=== PATIENT | female | born 1970 | race Caucasian/White ===

== ENCOUNTER 2020-07-14 18:27 | Inpatient (IN) | payer BC, MEDICAID, OTHER ==
[~2020-07-14] VITALS: Ht 157.5 cm; Wt 82.0 kg
[~2020-07-14 18:27] MED LIST: ERGO500017 PO; LEVO75TA5 PO; TRAM1TAB56 PO
--- NOTE | 2020-07-14 18:54 | NUR ---
REPORT SUSY TO DONG
[2020-07-14 19:22] LABS: BASOPHILS # (AUTO) 0.09 x10^3/uL (0-0.1); BASOPHILS % (AUTO) 1 % (0-1); EOSINOPHILS # (AUTO) 0.09 x10^3/uL (0-0.4); EOSINOPHILS % (AUTO) 1 % (1-7); LYMPHOCYTES # (AUTO) 2.63 x10^3/uL (1-3.4); LYMPHOCYTES % (AUTO) 31 % (22-44); MD NO; MEAN CORPUSCULAR HEMOGLOBIN 31.3 pg (27.0-34.8); MEAN CORPUSCULAR HGB CONC 33.4 g/dL (32.4-35.8); MEAN CORPUSCULAR VOLUME 93.8 fL (80-100); MEAN PLATELET VOLUME 8.2 fL (7.4-10.4); MONOCYTES # (AUTO) 0.35 x10^3/uL (0.2-0.8); MONOCYTES % (AUTO) 4 % (2-9); NEUTROPHILS # (AUTO) 5.25 x10^3/uL (1.8-6.8); NEUTROPHILS % (AUTO) 63 % (42-75); PLATELET COUNT 208 x10^3/uL (130-400); RED BLOOD COUNT 4.45 x10^6/uL (3.82-5.3); RED CELL DISTRIBUTION WIDTH 13.4 % (9.6-15.2)
[2020-07-14] MEDS ORDERED: SODIUM CHLORIDE FLUSH 10ML SYR IVF ONE (19:30)
[2020-07-14] MEDS ORDERED: SODIUM CHLORIDE 0.9% 1,000ML IVBOLUS ONE (19:30)
[2020-07-14 19:33] LABS: ALANINE AMINOTRANSFERASE 35 U/L (12-78); ALBUMIN 3.6 g/dL (3.4-5.0); ANION GAP 7 mmol/L (5-15); CALCIUM 8.6 mg/dL (8.5-10.1); CHLORIDE 107 mmol/L (98-107); CREATININE 0.72 mg/dL (0.55-1.02)
[2020-07-14 19:36] LABS: ALKALINE PHOSPHATASE 86 U/L (45-117); BILIRUBIN,TOTAL 0.4 mg/dL (0.2-1.0); TOTAL PROTEIN 7.3 g/dL (6.4-8.2)
[2020-07-14] MEDS ORDERED: POTASSIUM CHLORIDE 20 MEQ TAB.ER.PRT ONE (19:55)
[2020-07-14] MEDS ORDERED: POTASSIUM CHLORIDE 20 MEQ TAB.ER.PRT PO ONE (20:00)
[2020-07-14 20:04] LABS: MICROSCOPIC INDICATED
[2020-07-14] MEDS ORDERED: NICOTINE 14MG/24 HR PATCH.TD24 TD ONE (21:00)
[2020-07-14] MEDS ORDERED: BISACODYL 10 MG SUPP PR PRN (21:00)
[2020-07-14] MEDS ORDERED: ACETAMINOPHEN 325 MG TABLET PO PRN (21:00)
[2020-07-14] MEDS ORDERED: ONDANSETRON 2MG/ML, 2ML ONE (21:41)
[2020-07-14] MEDS ORDERED: NICOTINE 14MG/24 HR PATCH.TD24 ONE (21:41)
[2020-07-14] MEDS ORDERED: MORPHINE SULFATE 4 MG/ML, 1ML ONE (21:41)
[2020-07-14] MEDS: morphine SULFATE 10 MG/ML, 1ML IVPush PRN (21:49)
[2020-07-14] MEDS: ONDANSETRON 2MG/ML, 2ML IVPush PRN (21:49)
[2020-07-15 00:15] VITALS: BP 126/81
[2020-07-15] MEDS: morphine SULFATE 10 MG/ML, 1ML IVPush PRN ×4 (01:24→13:33)
[2020-07-15] MEDS: NS + 20MEQ KCL 1,000 ML IV SCH ×2 (01:24→09:57)
[2020-07-15 05:20] LABS: ANION GAP 7 mmol/L (5-15); CALCIUM 8.5 mg/dL (8.5-10.1); CHLORIDE 111 mmol/L (98-107)
[2020-07-15 05:21] LABS: CREATININE 0.64 mg/dL (0.55-1.02)
[2020-07-15 07:15] VITALS: BP 116/77
[2020-07-15] MEDS: ONDANSETRON 2MG/ML, 2ML IVPush PRN (09:13)
[2020-07-15 12:12] VITALS: BP 125/85
[2020-07-15] MEDS ORDERED: INDOCYANINE GREEN 25 MG VIAL IV ONE (15:00)
[2020-07-15] MEDS ORDERED: CHLORHEXIDINE 15 ML UDC ONE (15:09)
[2020-07-15] MEDS ORDERED: CHLORHEXIDINE 15 ML UDC MM ONE (15:18)
[2020-07-15] MEDS ORDERED: BUPIVACAINE/PF-EPI 0.5% 1:200K ONE ×2 (15:46→15:57)
[2020-07-15] MEDS ORDERED: FENTANYL PF 100 MCG/2ML ONE ×3 (15:59→18:16)
[2020-07-15] MEDS ORDERED: MIDAZOLAM 1 MG/ML, 2ML ONE (15:59)
[2020-07-15] MEDS ORDERED: PROPOFOL 50 ML ONE (16:18)
[2020-07-15] MEDS ORDERED: ROCURONIUM 10MG/ML,5ML ONE (16:27)
[2020-07-15] MEDS ORDERED: CEFAZOLIN 1,000 MG ONE (16:27)
[2020-07-15] MEDS ORDERED: DEXAMETHASONE 4 MG/ML, 1ML ONE (16:27)
[2020-07-15] MEDS ORDERED: SUCCINYLCHOLINE 20 MG/ML, 10ML ONE (16:27)
[2020-07-15] MEDS ORDERED: ONDANSETRON 2MG/ML, 2ML ONE ×2 (16:27→18:37)
[2020-07-15] MEDS ORDERED: MIDAZOLAM 1 MG/ML, 2ML IV PRN (17:00)
[2020-07-15] MEDS ORDERED: DIAZEPAM 5 MG/ML, 2ML IVPush PRN (17:00)
[2020-07-15] MEDS ORDERED: PROMETHAZINE 25 MG/ML, 1ML IVPush PRN (17:00)
[2020-07-15] MEDS ORDERED: LABETALOL 5MG/ML, 20ML IV PRN (17:00)
[2020-07-15] MEDS ORDERED: EPHEDRINE 50 MG/ML, 1ML IM PRN (17:00)
[2020-07-15] MEDS ORDERED: EPHEDRINE 50 MG/ML, 1ML IVPush PRN (17:00)
[2020-07-15] MEDS ORDERED: DIPHENHYDRAMINE 50 MG/ML, 1ML IVPush PRN (17:00)
[2020-07-15] MEDS ORDERED: MEPERIDINE/PF 25MG/0.5ML IVPush PRN (17:00)
[2020-07-15] MEDS ORDERED: ONDANSETRON 2MG/ML, 2ML IVPush PRN (17:00)
[2020-07-15] MEDS ORDERED: OXYcodone 5 MG/5 ML ORAL.SOL UDC PO PRN (17:00)
[2020-07-15] MEDS ORDERED: OXYcodone 5 MG/5 ML ORAL.SOL UDC ONE (18:17)
[2020-07-15] MEDS: FENTANYL PF 100 MCG/2ML IV PRN ×2 (18:20→18:32)
[2020-07-15] MEDS ORDERED: HYDROmorphone 1 MG/ML, 1ML INJ ONE (18:20)
[2020-07-15] MEDS: HYDROmorphone 1 MG/ML, 1ML INJ IVPush PRN ×2 (18:39→18:47)
[2020-07-15 20:16] VITALS: BP 130/84
[2020-07-15] MEDS ORDERED: morphine SULFATE 10 MG/ML, 1ML IV PRN (20:30)
[2020-07-15] MEDS ORDERED: hydrALAzine 20 MG/ML, 1ML IV PRN (20:30)
[2020-07-15] MEDS ORDERED: ONDANSETRON 2MG/ML, 2ML IV PRN (20:30)
[2020-07-15] MEDS ORDERED: DIPHENHYDRAMINE 25 MG CAPSULE PO PRN (20:30)
[2020-07-15] MEDS ORDERED: DIPHENHYDRAMINE 50 MG/ML, 1ML IV PRN (20:30)
[2020-07-15] MEDS ORDERED: ACETAMINOPHEN 650 MG SUPP PR PRN (20:30)
[2020-07-15] MEDS: POTASSIUM CHLORIDE 20 MEQ in D5%-0.45% NACL 1,000 ML IV SCH (20:30)
[2020-07-15] MEDS ORDERED: ACETAMINOPHEN 325 MG TABLET PO PRN (20:30)
[2020-07-15] MEDS ORDERED: SODIUM CHLORIDE FLUSH 10ML SYR IVF SCH (21:00)
[2020-07-16 00:21] VITALS: BP 130/79
[2020-07-16] MEDS: POTASSIUM CHLORIDE 20 MEQ in D5%-0.45% NACL 1,000 ML IV SCH (03:40)
[2020-07-16 04:16] VITALS: BP 117/76
[2020-07-16 04:59] LABS: BASOPHILS # (AUTO) 0.02 x10^3/uL (0-0.1); BASOPHILS % (AUTO) 0 % (0-1); EOSINOPHILS % (AUTO) 0 % (1-7); LYMPHOCYTES # (AUTO) 0.66 x10^3/uL (1-3.4); LYMPHOCYTES % (AUTO) 7 % (22-44); MD NO; MEAN CORPUSCULAR HEMOGLOBIN 31.2 pg (27.0-34.8); MEAN CORPUSCULAR VOLUME 94.3 fL (80-100); MEAN PLATELET VOLUME 8.3 fL (7.4-10.4); MONOCYTES # (AUTO) 0.11 x10^3/uL (0.2-0.8); MONOCYTES % (AUTO) 1 % (2-9); NEUTROPHILS # (AUTO) 8.38 x10^3/uL (1.8-6.8); NEUTROPHILS % (AUTO) 92 % (42-75); PLATELET COUNT 194 x10^3/uL (130-400); RED BLOOD COUNT 4.12 x10^6/uL (3.82-5.3); RED CELL DISTRIBUTION WIDTH 13.6 % (9.6-15.2)
[2020-07-16 05:07] LABS: ALBUMIN 3.2 g/dL (3.4-5.0); ANION GAP 8 mmol/L (5-15); CALCIUM 8.4 mg/dL (8.5-10.1); CHLORIDE 104 mmol/L (98-107)
[2020-07-16 05:11] LABS: ALANINE AMINOTRANSFERASE 98 U/L (12-78); ALKALINE PHOSPHATASE 79 U/L (45-117); BILIRUBIN,TOTAL 0.4 mg/dL (0.2-1.0); TOTAL PROTEIN 6.7 g/dL (6.4-8.2)
[2020-07-16 07:22] VITALS: BP 116/75
[2020-07-16] MEDS ORDERED: TRAM-47 PO (11:46)
== END 2020-07-16 11:31 | disposition home or self-care (01) | DRG 419 ==
LOC: ED 18:51 → EDIP 20:34 → 4NW 07-15 00:04 → DCLOUNGE 07-16 11:21
PROVIDERS: ADMIT Internal Medicine; ATTEND Family Medicine
PROC: 0FT44ZZ Resection of Gallbladder, Percutaneous Endoscopic Approach (ICD-10-PCS; principal; 2020-07-15 16:00)
DX: K80.10 Calculus of gallbladder with chronic cholecystitis without obstruction (principal); E03.9 Hypothyroidism, unspecified; E66.9 Obesity, unspecified; E87.6 Hypokalemia; F17.210 Nicotine dependence, cigarettes, uncomplicated; G89.29 Other chronic pain; K76.0 Fatty (change of) liver, not elsewhere classified; Z80.1 Family history of malignant neoplasm of trachea, bronchus and lung; Z83.3 Family history of diabetes mellitus; Z90.710 Acquired absence of both cervix and uterus; Z68.33 Body mass index [BMI] 33.0-33.9, adult; Z20.828 Contact with and (suspected) exposure to other viral communicable diseases
CPT/HCPCS: 36415; 76700; 80048; 80053; 81001; 83690; 85025; 87086; 87635; 88304; G0378; J0690; J1100; J1170; J2250; J2405; J2704; J3010; J3480; J0330; J2270; J7030

== ENCOUNTER 2021-08-10 07:25 | Emergency (ER) | payer OTHER ==
[~2021-08-10] VITALS: Ht 157.5 cm; Wt 85.1 kg
[~2021-08-10 07:25] MED LIST changes: +TRAM-47 PO
[2021-08-10 07:32] VITALS: BP 134/92
--- NOTE | 2021-08-10 07:39 | NUR ---
Patient walked back from triage with chief c/o of spider bite last . Per patient the right side of her face started swelling Sunday, bite on lower right forehead above eyebrow. Patient saw PCP Sunday, but symptoms are not resolving.
[2021-08-10] MEDS ORDERED: FLUORESCEIN OPHTHALMIC 1 MG STRIP ONE (07:57)
--- NOTE | 2021-08-10 08:33 | NUR ---
Patient given discharge instructions and prescriptions and they have confirmed that they understand the instructions. Patient ambulatory with steady gait. NAD, all questions answered appropriately, denies additional needs at this time. No personal belongings left in room after discharge.
== END 2021-08-10 08:38 | disposition home or self-care (01) ==
LOC: ED 07:55
DX: L03.211 Cellulitis of face (principal); B02.9 Zoster without complications
CPT/HCPCS: 99283